=== PATIENT | female | born 1970 | race Caucasian/White ===

== ENCOUNTER → 2024-10-12 13:12 | Outpatient (REF) | payer OTHER, SELFPAY | LOC: WDC 13:12 | PROVIDERS: ATTENDING PHYSICIAN Nurse Practitioner Adult Health; FAMILY PHYSICIAN Internal Medicine | DX: Z12.31 Encounter for screening mammogram for malignant neoplasm of breast (principal) | CPT/HCPCS: 77063; 77067 ==

== ENCOUNTER → 2025-10-04 18:19 | Outpatient (REF) | payer OTHER, SELFPAY | LOC: MRI 3T 18:19 | PROVIDERS: ATTENDING PHYSICIAN Chiropractor; FAMILY PHYSICIAN Internal Medicine | DX: M25.552 Pain in left hip (principal) | CPT/HCPCS: 73721 ==